=== PATIENT | male | born 1990 | race Caucasian/White ===

== ENCOUNTER 2020-03-23 09:27 | Outpatient (CLI) | payer BC, SELFPAY ==
--- NOTE | ~2020-03-23 | US_ITS ---
US venous doppler LE RT DATE: 03/23/2020 10:18 INDICATION: Swelling of right lower extremity. Posterior ankle lump for 10 years. TECHNIQUE: Routine, flow imaging and Doppler analysis of the veins of the right lower extremity COMPARISON: 04/16/2014 venous duplex examination of the lower extremities FINDINGS: There is thrombus within the greater saphenous vein at the area of clinical complaint of po sterior ankle lump. There is spontaneous and phasic flow and normal augmentation and color flow signal and normal melania david of the deep veins of the right lower extremity. There is no evidence of deep venous thrombosis. IMPRESSION: No evidence of deep venous thrombosis of right lower extremity Reviewed, dictated and finalized at Location A. Reviewed, dictated and finalized at location B.
== END 2020-03-23 09:28 | disposition home or self-care (01) ==
LOC: ANHIMG 09:40
PROVIDERS: PCP Internal Medicine; Visit Provider Internal Medicine
DX: M79.89 Other specified soft tissue disorders (principal)
CPT/HCPCS: 93971

== ENCOUNTER 2024-09-29 09:09 | Outpatient (CLI) | payer BC, SELFPAY ==
--- NOTE | ~2024-09-29 | US_ITS ---
Limited Abdominal Sonogram: Real-time sonographic imaging of the right upper quadrant was performed. Clinical History: Abnormal serum enzyme levels Findings: The liver appears echogenic, with no evidence of mass lesion or bile duct dilatation. Main portal vein demonstrates normal direction of flow. The gallbladder is well distended, and appears no rmal with no evidence of gallstone or wall thickening. The common bile duct measures 4 mm. The visua lized pancreas, aorta, and IVC are unremarkable. Impression: Diffuse fatty infiltration of the liver. Reviewed, dictated and finalized at location M. ATION CLERK Impression: Diffuse fatty infiltration of the liver.
--- OUTSIDE RECORDS SUMMARY | 2024-09-29 09:36 | XMS_ITS | Patient Health Record ---
Author Organization [facility] As [employer]lect[employer] Address [address] [facility] [address] [place] [address] Care Team Providers Care Zinc Chloride Operator Name Role Phone Eliot Cowan Unavailable [phone] Migration, Provider Unavailable Unavailable Allergies No Known Allergies Results Component Value Reference Range Notes DRUG SCREEN, 14 DRUGS (DETEC TIMED), URINE Reviewed date:11/16/2023 12:00:00 AM Interpretation: Performing Lab: Notes/Report: Amphetamine negative Barbiturates negative Benzodiazipine negative Buprenorphine negative Cocaine negative MDMA/Ectasy negative Methadone negative Methamphetamine positive Morphine negative note 90, neg Oxycodone negative Phenocyclidine negative THC negative UDT Reviewed date:02/04/2024 09:59:09 AM Interpretation:Normal Performing Lab: Notes/Report: Normal THC neg 0 - 50 ng/ml Cocaine neg Amphetamine neg Buprenorphine (BUP) neg Secobarbital (Bar) neg Oxazepam (BZO) neg 7-anzrdcyrce-9,4-lxriqxfn-4, 3-diphenylpyrrolidine (EDDP) neg Methamphetamine (MET) neg Methylenedioxymethamphetamine (MDMA) neg Morphine (MOP 300/BOB1426) neg Methadone (MTD) neg Phencyclidine (PCP) neg Propoxyphene (PPX) neg Nortriptyline (TCA) neg Reason For Referral No Information Medications Medication SIG (Take, Route, Fr equency, Duration) Notes Start Date End Date Status Vilazodone HCl 40 MG 1 tablet with food Orally Once a day for 30 days Active Problems Problem Type SNOMED Code ICD Code Onset Dates Problem Status W/U Status Risk Notes Problem Recurrent major depression in full remission (17146870) Major depressive disorder, recurrent, in full remission (F33.42) 11/16/19 Active confirmed Problem Attention deficit hyperactivity disorder, combined type (57681733) Attention-deficit hyperactivity disorder, combined type (F90.2) 11/16/19 Active confirmed Problem Attention deficit hyperactivity disorder (866359607) Attention-deficit hyperactivity disorder, unspecified type (F90.9) 11/16/19 Active confirmed Vital Signs Heart Rate 93 /min 02/04/2024 Height-cm 177.80 cm 02/04/2024 Blood pressure diastolic 77 mm Hg 02/04/2024 Weight-kg 88.45 kg 02/04/2024 Height 70.00 in 02/04/2024 Blood pressure systolic 111 mm Hg 02/04/2024 Weight 195 lbs 02/04/2024 BMI 27.98 kg/m2 02/04/2024 Encounters Encounter Location Date Provider Diagnosis [facility] [employer] [place] [id number] [facility] [address] [address] 11/16/2023 Eliot Cowan Major depressive disorder, recurrent, in full remission F33.42 ; Attention-deficit hyperactivity disorder, combined type F90.2 and Attention-deficit hyperactivity disorder, unspecified type F90.9 [facility] [place] [address] [facility] [address] [address] 02/04/2024 Eliot Cowan On jail drug therapy Z79.899 ; Major depressive disorder, recurrent, in full remission F33.42 ; Attention-deficit hyperactivity disorder, combined type F90.2 and Attention-deficit hyperactivity disorder, unspecified type F90.9 [facility] [place] [address] [facility] [address] [address] 12/01/2023 Provider Migration [facility] [place] [address] [facility] [address] [address] 12/03/2023 Provider Migration [facility] [address] [facility] [address] [address] 01/05/2024 Provider Migration [facility] [place] [address] [facility] [address] [address] 01/06/2024 Provider Migration Assessments Encounter Date Diagnosis (ICD Code) Assessment Notes Treatment Notes Treatment Clinical Notes Section Notes 11/16/2023 Major depressive disorder, recurrent, in full remission (ICD-10 - F33.42) 11/16/2023 Attention-deficit hyperactivity disorder, combined type (ICD-10 - F90.2) 11/16/2023 Attention-deficit hyperactivity disorder, unspecified type (ICD-10 - F90.9) 02/04/2024 On jail drug therapy (ICD-10 - Z79.899) 02/04/2024 Major depressive disorder, recurrent, in full remission (ICD-10 - F33.42) 02/04/2024 Attention-deficit hyperactivity disorder, combined type (ICD-10 - F90.2) 02/04/2024 Attention-deficit hyperactivity disorder, unspecified type (ICD-10 - F90.9) Plan Of Treatment No Information Insurance Providers Payer Name Payer Address Payer Phone Subscriber Number Group Number Insured Name Patient Relationship to Insured Coverage Start Date Coverage End Date [employer] [address] [place] [address] [id number] MO MONROE Self - patient is the insured Medical (General) History Medical History History ICD Code Problems: Attention deficit hyperactivit y disorder, combined type Recurrent major depression in full remis david
--- OUTSIDE RECORDS SUMMARY | 2024-09-29 09:36 | XMS_ITS ---
Author Organization [facility] Bleacher [employer] [facility] Address [address] [place] [address] Care Team Providers Care Stock Patch Sawyer Name Role Phone Eliot Cowan Unavailable [phone] Migration, Provider Unavailable Unavailable REASON FOR VISIT EMR-Benji Encounters Encounter Location Date Provider Diagnosis [facility] [address] [facility] [address] [place] [address] 01/05/2024 Provider Migration Plan Of Treatment No Information Progress Notes * SULY MONROEOB: 3 (33 yo M)Acc No.[id number]:01/05/2024 Patient: MO LEWIS :1990 A ge:33 Y S ex:Male Address:[address] [place], [address] Subjective: * Chief Complaints: * E MR-Benji * Medical History: * Surgical History: * Hospitalization/Major Diagno stic Procedure: * Medications: Objective: * Vitals: * Physical Examination: Assessment: Plan: * Treatment: PDMP report request complete d on 02/04/2024 08:51:12 AM - Eliot Cowan * Procedure Codes: * true * Date: Generated for Jose barcenas/Kacie/Dawoodsmitting on: 0 09/29/2024 09:36 AM LEAK DETECTOR
--- OUTSIDE RECORDS SUMMARY | 2024-09-29 09:37 | XMS_ITS | Clinical Summary ---
Author Organization [facility] Address [address] [place] [address] Care Team Providers Care Meter Installer And Remover Name Role Phone Navid Sousa MD Primary Care Provider [phone] Navid Sousa MD Unavailable Allergies No known active allergies Medications methylphenidate ER (CONCERTA) 18 mg CR tablet take 1 tablet by oral route every day in the morning 0 0 01/27/2016 Active vilazodone (VIIBRYD) 10 mg tablet 10 mg. 0 0 01/27/2016 Active Active Problems Problem Noted Date Diagnosed Date Thrombophlebitis of superfic ial veins of right lower extremity 03/24/2020 Assessment & Plan (03/24/2020 3:17 PM CDT): Patient has superficial thrombophlebitis of the right lower extremity on a posterior varicosity that has now thrombosed. He does not have any reflux or other varicose veins. Plan will be for phlebectomy of the thrombosed vein. I discussed this with the patient and his father and they are in agreement that he would like to undergo this procedure. Mass of right lower extremity 03/24/2020 Assessment & Plan (03/24/2020 3:17 PM CDT): This was found to be a superficial thrombophlebitis that is exquisitely tender to touch. Subcutaneous nodule 01/31/2016 Overview (11/30/2016): Subcutaneous nodule Pain of lower extremity 01/27/2016 Overview (11/30/2016): Pain of right lower leg Surgical History Surgery Date Site/Laterality Comments TYMPANOSTOMY TUBE PLACEMENT Social History Tobacco Use Types Packs/Day Years Used Date Smoking Tobacco: Never Smokeless Tobacco: Never Alcohol Use Standard Drinks/Week Comments No 0 (1 standard drink = 0.6 oz pur e alcohol) Personal Safety Answer Date Recorded Getting School Help Needed Not on file 11/03 Sex and Gender Information Value Date Recorded Sex Assigned at Not on file Legal Sex 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 Gender Identity Not on file Sexual Orientation Not on file Obstetrics History Last Filed Vital Signs Vital Sign Reading Time Taken Comments Blood Pressure 123/86 04/21/2020 1:01 PM CDT Pulse 94 04/21/2020 1:01 PM CDT Temperature 36.6 C (97.8 F) 04/06/2020 8:00 AM CDT Respiratory Rate - - Oxygen Saturation 99% 04/06/2020 8:00 AM CDT Inhaled Oxygen Concentration - - Weight 82.6 kg (182 lb) 04/21/2020 1:01 PM CDT Height 177.8 cm (5' 10 ) 04/21/2020 1:01 PM CDT Body Mass Index 26.11 04/21/2020 1:01 PM CDT Plan of Treatment Not on file [place] Care Teams Meter Installer And Remover Relationship Specialty Start Date End Date Navid Sousa MD [address] [facility] [address] [place] [address] PCP - General 03/24/20 Navid Sousa MD [address] [place] [address] 03/24/20
--- OUTSIDE RECORDS SUMMARY | 2024-09-29 09:37 | XMS_ITS ---
Author Organization [facility] [employer] Address [address] [address] Care Team Providers Care Pumpman Name Role Phone Eliot Cowan Unavailable [phone] Migration, Provider Unavailable Unavailable REASON FOR VISIT [facility] Medications Medication SIG (Take, Route, Frequency, Duration) Notes Start Date End Date Status Methylphenidate HCl ER 54 MG Oral 11/16/2023 Active Vilazodone HCl 40 MG Oral 11/16/2023 Active Viibryd 40 MG Oral 11/16/2023 Activ e Encounters Encounter Location Date Provider Diagnosis [facility] [employer] [facility] [address] [facility] [address] [address] 01/06/2024 Provider Migration Plan Of Treatment No Information Progress Notes * SULY MONROEOB: 3 (33 yo M)Acc No.[id number]:01/06/2024 Patient: MO LEWIS :1990 A ge:33 Y S ex:Male Address:[address] [place], [address] Subjective: * Chief Complaints: * E MR-Benji * Medical History: * Surgical History: * Hospitalization/Major Diagno stic Procedure: * Family History: B scotty: Depressive disorder . * Social History: M igrated Social History: M igrated Social History: Alcohol Intake: None 11/16/2023,Tobacco Years: Never smoker 11/16/2023. * Medications: T akingVilazodone HCl 40 MG Tablet Oral Methylphenidate HCl ER 54 MG Tablet Extended Release Oral Viibryd 40 MG Tablet Oral Taking Vilazodone HCl 40 MG Tablet Oral Taking Methylphenidate HCl ER 54 MG Tablet Extended Release Oral Taking Viibryd 40 MG Tablet Oral Objective: * Vitals: * Physical Examination: Assessment: Plan: * Treatment: PDMP report request complete d on 02/04/2024 08:51:12 AM - Eliot Cowan * Procedure Codes: * true * Date: Generated for Jose barcenas/Kacie/Greg on: 0 09/29/2024 09:36 AM BUILDING COMPONENTS DESIGNER
--- OUTSIDE RECORDS SUMMARY | 2024-09-29 09:37 | XMS_ITS ---
Author Organization [facility] As [employer] Address [address] [facility] [address] [place] [address] Care Team Providers Care Right Of Way Maintenance Supervisor Name Role Phone Eliot Ruiz Unavailable [phone] Allergies No Known Allergies Results Component Value Reference Range Notes UDT Reviewed date:02/04/2024 09:59:09 AM Interpretation:Normal Performing Lab: Notes/Report: Normal THC neg 0 - 50 ng/ml Cocaine neg Amphetamine neg Buprenorphine (BUP) neg Secobarbital (Bar) neg Oxazepam (BZO) neg 3-qevjcigxrm-1,0-bcssdobk-2,3-diphenylpyrrolidine (JEN P) neg Methamphetamine (MET) neg Methylenedioxymethamphetamine (MDMA) neg Morphine (MOP 300/AEP9330) neg Methadone (MTD) neg Phencyclidine (PCP) neg Propoxyphene (PPX) neg Nortriptyline (TCA) neg REASON FOR VISIT follow up Medications Medication SIG (Take, Route, Frequency, Duration) Notes Start Date End Date Status Methylphenidate HCl ER (OSM) 54 MG 1 tablet in the morning Orally Once a day for 30 days 02/04/2024 03/05/2024 Active Vilazodone HCl 40 MG 1 tablet with food Orally Once a day for 30 days Active Problems Problem Type SNOMED Code ICD Code Onset Dates Problem Status W/U Status Risk Notes Problem Recurrent major depression in full remission (26429041) Major depressive disorder, recurrent, in full remission (F33.42) 11/16/19 24 Active confirmed Problem Attention deficit hyperactivity disorder, combined type (97560166) Attention-deficit hyperactivity disorder, combined type (F90.2) 11/16/19 24 Active confirmed Problem Attention deficit hyperactivity disorder (211993098) Attention-deficit hyperactivity disorder, unspecified type (F90.9) 11/16/19 24 Active confirmed Vital Signs Blood pressure systolic 111 mm Hg 02/04/20 24 Blood pressure diastolic 77 mm Hg 024 Heart Rate 93 /min 02/04/2024 Weight 195 lbs 02/04/2024 Weight-kg 88.45 kg 02/04/2024 Height 70.00 in 02/04/2024 Height-cm 177.80 cm 02/04/2024 BMI 27.98 kg/m2 02/04/2024 Encounters Encounter Location Date Provider Diagnosis [facility] [employer] [facility] [address] [facility] [address] [place] [address] 02/04/2024 Eliot Ruiz On jail drug therapy Z79.899 ; Major depressive disorder, recurrent, in full remission F33.42 ; Attention-deficit hyperactivity disorder, combined type F90.2 and Attention-deficit hyperactivity disorder, unspecified type F90.9 Assessments Encounter Date Diagnosis (ICD Code) Assessment Notes Treatment Notes Treatment Clinical Notes Section Notes 02/04/2024 On jail drug therapy (ICD-10 - Z79.899) 02/04/2024 Major depressive disorder, recurrent, in full remission (ICD-10 - F33.42) 02/04/2024 Attention-deficit hyperactivity disorder, combined type (ICD-10 - F90.2) 02/04/2024 Attention-deficit hyperactivity disorder, unspecified type (ICD-10 - F90.9) Plan Of Treatment Medication Medication Name Sig Start Date Stop Date Notes Methylphenidate HCl ER (OSM) 54 MG 1 tablet in the morning Orally Once a day for 30 days 02/04/2024 03/05/2024 Vilazodone HCl 40 MG 1 tablet with food Orally Once a day for 30 days Next Appt Details Follow Up: 3 Months, Reason: adhd Progress Notes * CRISTINE MONROEWANGOB: 3 (33 yo M)Acc No.[id number]:02/04/2024 Patient: MO LEWIS Provider: Nichole RUIZ MD :1990 A ge:33 Y S ex:Male Date:02/04/2024 [facility] Subjective: * Chief Complaints: * F ollow up * HPI: D epression screening: PHQ-9 L ittle interest or pleasure in doing things N ot at all, F eeling down, depressed, or hopeless N ot at all, T rouble falling or staying asleep, or sleeping too much S everal days, F eeling tired or having little energy N ot at all, P oor appetite or overeating S everal days, F eeling bad about yourself or that you are a failure, or have let yourself or your family down N ot at all, T rouble concentrating on things, such as reading the newspaper or watching television N ot at all, M oving or speaking so slowly that other people could have noticed; or the opposite, being so fidgety or restless that you have been moving around a lot more than usual N ot at all, T houghts that you would be better off or of hurting yourself in some way N ot at all, T otal Score 2 ,?Interpretation M inimal Depression. The patient expresses concerns about the financial burden associated with urine tests, citing a recent charge of $125. While willing to continue with the tests, they inquire about alternative options, such as obtaining the prescription from their primary care physician, to alleviate the cost. Chief Complaint: The patient's primary concern revolves around the cost of urine tests and exploring more affordable alternatives. Regarding their mental health, the patient reports that their depression and anxiety are well-managed. They acknowledge work-related stress, specifically challenges involving insurance policies and claims, but indicate that they are handling the stress adequately without experiencing major anxiety or panic attacks. The patient denies any history of smoking, drinking, or using street drugs. D epression Screening: ANTONIA-7 (2018 Edition) F eeling nervous, anxious, or on edge?Several days, N ot being able to stop or control worrying S everal days, W orrying too much about different things S everal days, T rouble relaxing N ot at all, B eing so restless that it is hard to sit still N ot at all, B ecoming easily annoyed or irritable?Several days, F eeling afraid as if something awful might happen N ot at all, I f you checked any problems, how difficult have they made it for you to do your work, take care of things at home, or get along with other people? S omewhat difficult, I nterpretation of Total?(5 to 9) Mild. * Medical History: * Surgical History: D enies Past Surgical History * Hospitalization/Major Diagno stic Procedure: D enies Past Hospitalization * Family History: B rother: Depressive disorder . * Social History: M igrated Social History: M igrated Social History: Alcohol Intake: None 11/16/2023,Tobacco Years: Never smoker 11/16/2023. * Medications: T akingMethylphenidate HCl ER (OSM) 54 MG Tablet Extended Release Oral Vilazodone HCl 40 MG Tablet Oral Taking Methylphenidate HCl ER (OSM) 54 MG Tablet Extended Release Oral Taking Vilazodone HCl 40 MG Tablet Oral DiscontinuedMethylphenidate HCl ER (OSM) 54 MG Tablet Extended Release Oral Methylphenidate HCl ER 54 MG Tablet Extended Release Oral Viibryd 40 MG Tablet Oral Vilazodone HCl 40 MG Tablet Oral Medication List reviewed and reconciled with the patientDiscontinued Methylphenidate HCl ER (OSM) 54 MG Tablet Extended Release Oral Discontinued Methylphenidate HCl ER 54 MG Tablet Extended Release Oral Discontinued Viibryd 40 MG Tablet Oral Discontinued Vilazodone HCl 40 MG Tablet Oral Medication List reviewed and reconciled with the patient * Allergies: N .K.D.A.no[Allergies Verified] Objective: * Vitals: B P:sittin/77mm Hg, HR:93/min, Wt:195lbs, Wt-k.45 kg, Ht: 70.00 in, Ht- cm: 177.80 cm, BMI:27.98Index, Body Surface Area: 2.09. Assessment: * Assessment: 1. O n jail drug therapy - Z79.899 2 . M ajor depressive disorder, recurrent, in full remission - F33.42 3 . A ttention-deficit hyperactivity disorder, combined type - F90.2?4. A ttention-deficit hyperactivity disorder, unspecified type - F90.9 Plan: * Treatment: 2. A ttention-deficit hyperactivity disorder, combined type Refill Methylphenidate HCl ER (OSM) Tablet Extended Release, 54 MG, 1 tablet in the morning, Orally, Once a day, 30 days, 30 Tablet, Refills 0. * Labs: * L ab: UDT (Collection Date & Time - 02/04/2024) N ormal Value Reference Range T HC neg 0 - 50 ng/ml * C ocaine neg * A mphetamine neg * B uprenorphine (BUP) neg * S ecobarbital (Bar) neg * O xazepam (BZO) neg * 2 -ethylidene-1,5-yngmrvcs-0,3-diphenylpyrrolidine (EDDP) neg * M ethamphetamine (MET) neg * M ethylenedioxymethamphetamine (MDMA) neg * M orphine (MOP 300/PNY7069) neg * M ethadone (MTD) neg * P hencyclidine (PCP) neg * P ropoxyphene (PPX) neg * N ortriptyline (TCA) neg * Procedure Codes: 8 0305 DRUG TEST PRSMV READ DIRECT OPTICAL OBS NE DATE, Modifiers: QW * Follow Up: 3 Months (Reason: adhd) * Billing Information: * Visit Code: * Procedure Codes: 17078 DRUG TEST PRSMV READ DIRECT OPTICAL OBS NE DATE. Modifiers: QW * Sign off status: Completed true * Provider: Nichole RUIZ MD Date: 0 02/04/2024 Generated for Jose barcenas/Kacie/eTransmitting on: 0 09/29/2024 09:36 AM MEDICAL PROGRAM SPECIALIST History and Physical Notes * HPI (History of Present Illness) Category Sub-Category Detail Notes Category Not es Depression screening PHQ-9 Little inte rest or pleasure in doing things: Not at all The patient expresses concerns about the financial burden associated with urine tests, citing a recent charge of $125. While willing to continue with the tests, they inquire about alternative options, such as obtaining the prescription from their primary care physician, to alleviate the cost. Chief Complaint: The patient's primary concern revolves around the cost of urine tests and exploring more affordable alternatives. Regarding their mental health, the patient reports that their depression and anxiety are well-managed. They acknowledge work-related stress, specifically challenges involving insurance policies and claims, but indicate that they are handling the stress adequately without experiencing major anxiety or panic attacks. The patient denies any history of smoking, drinking, or using street drugs. Feeling down, depressed, or hopeless: No t at all Trouble falling or staying asleep, or sl eeping too much: Several days Feeling tired or having little energy: N ot at all Poor appetite or overeating: Several day s Feeling bad about yourself o r that you are a failure, or have let yourself or your family down: Not at all Trouble concentrating on thi ngs, such as reading the newspaper or watching television: Not at all Moving or speaking so slowly that other people could have noticed; or the opposite, being so fidgety or restless that you have been moving around a lot more than usual: Not at all Thoughts that you would be b romero off or of hurting yourself in some way: Not at all Total Score: 2 Interpretation: Minimal Depression Depression Screening ANTONIA-7 (2018 Edition) Feelin g nervous, anxious, or on edge: Several days Not being able to stop or control worryi ng: Several days Worrying too much about different things : Several days Trouble relaxing: Not at all Being so restless that it is hard to sit still: Not at all Becoming easily annoyed or irritable: Se veral days Feeling afraid as if something awful natalie ht happen: Not at all If you checked any problems, how difficult have they made it for you to do your work, take care of things at home, or get along with other people?: Somewhat difficult Interpretation of Total: (5 to 9) Mild
--- OUTSIDE RECORDS SUMMARY | 2024-09-29 09:37 | XMS_ITS | Referral Summary ---
Author Organization [facility] Address [address] [place] [address] Care Team Providers Care Clinical Research Tech Name Role Phone Navid Sousa MD Primary Care Provider [phone] Navid oSusa MD Unavailable [phone] Allergies No known active allergies Medications methylphenidate [...] Overview (11/30/2016): Pain of right lower leg Social History Tobacco Use Types Packs/Day Years Used Date Smoking Tobacco: Never Smokeless Tobacco: Never Alcohol Use Standard Drinks/Week Comments No 0 (1 standard drink = 0.6 oz pur e alcohol) Personal Safety Answer Date Recorded Getting School Help Needed Not on file 11/03 Sex and Gender Information Value Date Recorded Sex Assigned at Not on file 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
== END 2024-09-29 09:10 | disposition home or self-care (01) ==
PROVIDERS: PCP Internal Medicine; Visit Provider Internal Medicine
DX: R74.8 Abnormal levels of other serum enzymes (principal); K76.0 Fatty (change of) liver, not elsewhere classified
CPT/HCPCS: 76705